=== PATIENT | male | born 1970 | race Two or more races ===

== ENCOUNTER 2018-11-05 07:48 | Day surgery (SDC) | payer BC ==
[~2018-11-05] VITALS: Ht 193 cm; Wt 90.7 kg
[2018-11-05] VITALS (10 sets, daily range): BP systolic 96–132; BP diastolic 51–77
--- NOTE | 2018-11-05 07:20 | Pre-Procedure Note/Attestation ---
Pre-Procedure Note/Attestation Complete Prior to Procedure Planned Procedure: left Procedure Narrative: knee scope partial medial meniscectomy, possible repair of root Indications for Procedure Pre-Operative Diagnosis: left knee medial meniscus tear Attestation I attest that I discussed the nature of the procedure; its benefits; risks and complications; and alternatives (and the risks and benefits of such alternatives ), prior to the procedure, with the patient (or the patient's legal solar sales representative and assessor). I attest that, if there was a reasonable possibility of needing a blood transfusion, the patient (or the patient's legal solar sales representative and assessor) was given the [facility] standardized written summary, pursuant to the [place] Blood Safety Act ([place] Health and Safety Code # 1645, as amended). I attest that I re-evaluated the patient just prior to the surgery and that there has been no change in the patient's H&P, except as documented below: Gabriel Urban MD Nov 05, 2018 07:19
[2018-11-05] MEDS ORDERED: Acetaminophen (Non formulary) 100 ML IV ONE (09:00)
[2018-11-05] MEDS ORDERED: celeBREX 200mg Cap **SURGERY PATIENTS ONLY ORAL ONE ×2 (09:10→09:30)
[2018-11-05] MEDS ORDERED: oxyCONTIN 20mg tab ORAL ONE ×2 (09:10→09:30)
[2018-11-05] MEDS ORDERED: AMLODIPINE-ATO1 EACH ORAL (09:38)
[2018-11-05] MEDS ORDERED: SYNTHROID150 MCG ORAL (09:39)
[2018-11-05] MEDS ORDERED: Lidocaine 1% MPF 10mg/ml 5ml ONE (10:30)
[2018-11-05] MEDS ORDERED: NS Irrig 4000ml IRRIG ONE (10:30)
[2018-11-05] MEDS ORDERED: Propofol 200mg/20ml IV ONE (10:30)
[2018-11-05] MEDS ORDERED: Sterile Water Irrig 1000ml IRRIG ONE (10:30)
[2018-11-05] MEDS ORDERED: LR 1000ml ONE (10:30)
[2018-11-05] MEDS ORDERED: fentaNYL 100 mcg/2 mL IV ONE (10:30)
[2018-11-05] MEDS ORDERED: Midazolam 2mg/2ml Inj ONE (10:31)
[2018-11-05] MEDS ORDERED: Ropivacaine 5mg/ml Vial 30ml INJ ONE (10:47)
--- NOTE | 2018-11-05 10:51 | Brief Operative Note ---
Immediate Post Operative Note Operative Note Pre-op Diagnosis: left knee medial meniscus tear Procedure: Left knee scope, partial medial meniscectomy Post-op Diagnosis: same as pre-op Surgeon: arash Anesthesia: general Specimen: none Complications: none Condition: stable Fluids: 100cc Estimated Blood Loss: none Tourniquet time: 30 - min Implant(s) used?: Gabriel Diallo MD Nov 05, 2018 10:51
--- NOTE | 2018-11-05 10:53 | Anethesia Preoperative Eval ---
Anesthesia Pre-op PMH/ROS General Date of Evaluation: Nov 05, 2018 Anesthesiologist: Uday ASA Score: ASA 2 Mallampati Score Class I : Soft palate, uvula, fauces, pillars visible Class II: Soft palate, uvula, fauces visible Class III: Soft palate, base of uvula visible Class IV: Only hard plate visible Mallampati Classification: Class I Surgeon: Rajni Diagnosis: Left knee pain Surgical Procedure: Left knee arthroscopy Anesthesia History: none Family History: no anesthesia problems Allergies: Coded Allergies: No Known Allergies (Unverified , 11/05/18) Medications: see eMAR Patient NPO?: Yes NPO Date: Nov 04, 2018 NPO Time: 22:00 Past Medical History Cardiovascular: Reports: HTN; Denies: CAD, PR, valve dz, arrhythmia, other Pulmonary: Denies: asthma, COPD, CHIRAG, other Gastrointestinal/Genitourinary: Denies: GERD, CRI, ESRD, other Neurologic/Psychiatric: Denies: dementia, CVA, depression/anxiety, TIA, other Endocrine: Reports: hypothyroidism; Denies: DM, steroids, other HEENT: Denies: cataract (L), cataract (R), glaucoma, INAJA (L), INAJA (R), other Hematology/Immune: Denies: anemia, DVT, bleeding disorder, other Musculoskeletal/Integumentary: Denies: OA, RA, DJD, DDD, edema, other PSxH Narrative: left knee sx Anesthesia Pre-op Phys. Exam Physician Exam Last Vital Signs Date Time Temp Pulse Resp B/P (MAP) Pulse Ox O2 Delivery O2 Flow Rate FiO2 11/05/18 09:00 97.6 62 18 132/77 99 Room Air Constitutional: NAD Cardiovascular: RRR Respiratory: CTA Airway Exam Mallampati Score: Class I MO: full ROM: full Teeth: intact Anesthesia Pre-op A/P Labs see chart Studies Pre-op Studies: EKG - sr Risk Assessment & Plan Assessment: ASA II Plan: GA Status Change Before Surgery: No Pre-Antibiotics Drug: Ancef 2g Given Within 1 Hr of Incision: Yes Gaby Friedman MD Nov 05, 2018 10:53
[2018-11-05] MEDS ORDERED: LR 1000ml 1,000 ML IVLG SCH (10:54)
[2018-11-05] MEDS ORDERED: Hydromorphone 0.5mg/0.5ml inj IVP PRN (11:00)
[2018-11-05] MEDS ORDERED: Metoclopramide 10mg/2ml Inj IVP PRN (11:00)
[2018-11-05] MEDS ORDERED: Midazolam 2mg/2ml Inj IVP PRN (11:00)
[2018-11-05] MEDS ORDERED: DiphenhydrAMINE 50mg/ml Inj IVP PRN (11:00)
[2018-11-05] MEDS ORDERED: fentaNYL 100 mcg/2 mL IV PRN (11:00)
[2018-11-05] MEDS ORDERED: LORazepam Inj 2mg/ml 1ml IV PRN (11:00)
[2018-11-05] MEDS ORDERED: Ketorolac 30mg Inj IV PRN (11:00)
--- NOTE | 2018-11-05 12:07 | Immediate Post-Op Evaluation ---
Immediate Post-Op Evalulation Immediate Post-Op Evalulation Procedure: Left knee arthroscopy Date of Evaluation: Nov 05, 2018 Time of Evaluation: 11:32 IV Fluids: 800 Blood Products: 0 Estimated Blood Loss: min Urinary Output: 0 Blood Pressure Systolic: 105 Blood Pressure Diastolic: 71 Pulse Rate: 82 Respiratory Rate: 16 O2 Sat by Pulse Oximetry: 97 Temperature (Fahrenheit): 99.1 Pain Score (1-10): 0 Nausea: No Vomiting: No Complications 0 Patient Status: awake, reacts, patent, none Hydration Status: adequate Drug: Ancef 2g Given Within 1 Hr of Incision: Yes Gaby Friedman MD Nov 05, 2018 12:07
--- NOTE | 2018-11-05 12:07 | 48 Hour Post Anesthesia Eval ---
Post Anesthesia Evaluation Procedure: Left knee arthroscopy Date of Evaluation: Nov 05, 2018 Airway: patent Nausea: No Vomiting: No Pain Intensity: 0 Hydration Status: adequate Cardiopulmonary Status: at baseline Mental Status/LOC: patient returned to baseline Post-Anesthesia Complications: 0 Follow-up care needed: ready to discharge Gaby Friedman MD Nov 05, 2018 12:07
--- NOTE | 2018-11-05 16:45 | Operative Note - Dictated ---
DATE OF OPERATION: 11/05/2018 PREOPERATIVE DIAGNOSIS: Left knee complex tear of the posterior horn and body of the medial meniscus. POSTOPERATIVE DIAGNOSIS: Left knee complex tear of the posterior horn and body of the medial meniscus. PROCEDURE: 1. Left knee arthroscopy and extensive intra-articular shaving. 2. Left knee partial medial meniscectomy involving 35% posterior horn and body of the medial meniscus with intact meniscal root. SURGEON: Gabriel Urban M.D. MUSICAL INSTRUMENT MAKER: None. ANESTHESIOLOGIST: . ANESTHESIA: LMA anesthesia. ESTIMATED BLOOD LOSS: Less than 20 mL. TOURNIQUET TIME: 25 minutes. COMPLICATIONS: None. SURGICAL INDICATION: Patient is a 48-year-old male who sustained the above injury to his knee. The patient was treated non-operative initially, but this did not alleviate the patients symptoms. Therefore, after discussing all non-surgical and surgical options, and discussing all foreseeable risk and benefits of surgery, the patient opted for surgical treatment as described above. PATIENT POSITIONING: Patient was brought to the operating room table and placed supine. All pressure points were well padded. General Anesthesia was induced and a well padded tourniquet was placed on the thigh. The lateral post was placed and positioned to allow for opening of the medial compartment of the knee without placing pressure over the fibular head. Patients entire leg was prepped and draped in the usual sterile fashion. Time out was performed and preop abx was given and after exsanguinating the lower extremity, the tourniquet was inflated to 275 mm of mercury. EXAMINATION OF THE KNEE UNDER ANESTHESIA: Before prepping and draping the knee and while the patient was relaxed under general anesthesia, the knee was examined for ROM, and anterior and posterior, medial and lateral, posterolateral, and posteromedial instability. Pivot shift testing was performed. There was no evidence of loss of motion or instability and the pivot shift testing was negative. PORTAL PLACEMENT: The lateral portal was placed with the knee flexed to 90 degrees at the level of inferior border of the patella in line with the lateral border of the patella. A cm skin incision was made with an eleven blade, and using a blunt obturator, the capsule was gently penetrated. Sterile saline solution was then infused inside the knee with the aid of a pump set at 35 mm mercury pressure. Under direct visualization, placement of the medial portal was preliminary judged using a spinal needle, and it was subsequently established using the same technique as the lateral portal. Care was given not to injure the cutaneous branches of the medial Saphenous nerve or the subcutaneous veins. DIAGNOSTIC ARTHROSCOPY: The suprapatellar patellar pouch was visualized. There was no evidence of scar tissue or loose fragments. The medial and lateral patellar facets and trochlear groove articular cartilage was visualized. These structures were intact and were devoid of any articular cartilage damage. The medial plica shelf and the corresponding medial femoral condyle articular cartilage were visualized. There was no significantly thickening of the medial plica shelf and there were no kissing? lesion over the medial femoral condyle. The lateral gutter and the posterolateral corner of the knee were visualized. There were no loose bodies, and the popliteus tendon and other structures of the posterolateral corner of the knee were intact intra-articularly. At this point, the knee was placed in the figure of four position and the lateral compartment was entered. The lateral femoral condyle, lateral tibial plateau, and the anterior, body, and the posterior horn of the lateral meniscus were visualized and probed. The articular surfaces were intact and devoid of articular cartilage damage. The lateral meniscus was completely intact both on its undersurface and on the top. The knee was then placed at 90 degree and the ACL and PCL were visualized and probed. The ACL was completely intact on visualization and probing, and it had excellent tension. The PCL was completely intact on visualization and probing and it had excellent tension. The medial compartment was then entered and the medial femoral condyle, medial tibial plateau, and the anterior, body, and the posterior horn of the medial meniscus were visualized and probed. The articular surfaces were intact and devoid of articular cartilage damage. There was a complex tear of the posterior horn and body of the medial meniscus. The meniscal root was intact. However, there was a tear that extended all the way back and involved 35% of the posterior horn and body of the medial meniscus. This was both vertical and horizontal cleavage. The medial gutter was visualized. There was no evidence of defect or loose fragments. The scope was then brought back to the patella femoral compartment. OPERATIVE ARTHROSCOPY: At this point, all loose debris and fragments were removed with the use of suction motorized shaver. Specific attention was given to assure all visible loose fragments were irrigated out of the knee joint with pump inflow and cannula outflow system. For medial meniscectomy: At this point, attention was given to the medial meniscus. Using combination of baskets and helena, the torn portion of the medial meniscus was removed. Attention was given to remove all displaced and unstable portion of the medial meniscus while maintaining as much of the functional portion of the meniscus as possible. Approximately, 35 percent of the posterior horn and body of the medial meniscus was removed in this fashion. The transition between the meniscectomy portion and intact portion of the meniscus was smoothed out with combination of small baskets and helena. Excellent transition zone was obtained in this fashion. CONDITION AT DISCHARGE FROM OPERATING ROOM: The knee was irrigated with copious amount of normal saline at the end of the procedure. The scope was removed and the water was drained. The skin edges were re-approximated and sterile dressing was applied. All lap count and instrument counts were correct. Patient tolerated the procedure well without complications and was taken to the recovery room in stable conditions. Gabriel Urban M.D. DR: BRIGETTE JOB#: [id number] CC:
[2018-11-05] MEDS ORDERED: Tylenol #3 tab (300mg/30mg) ORAL PRN (19:01)
[2018-11-05] MEDS ORDERED: HYDROcodone/Acetamin 5/325 tab ORAL PRN (19:01)
[2018-11-05] MEDS ORDERED: D5 1/2NS 1,000 ML IV SCH (19:01)
[2018-11-05] MEDS ORDERED: HYDROmorphone 1mg/ml Carpuject SUBQ PRN (19:01)
== END 2018-11-05 13:15 | disposition home or self-care (01) ==
LOC: SUR 07:48
DX: S83.242A Other tear of medial meniscus, current injury, left knee, initial encounter (principal)
CPT/HCPCS: 29881; J0690; J2250; J2704; J2795; J3010; 94003; 94150